=== PATIENT | female | born 1955 | race Caucasian/White ===

== ENCOUNTER → 2020-02-29 | Outpatient (CLI) | payer OTHER ==
[~2020-02-29] MED LIST: HYDACE5325 PO; RXHYD5325 PO
== END ==
LOC: LAB SHORT 14:43 → PLD 14:43
DX: D22.62 Melanocytic nevi of left upper limb, including shoulder (principal)
CPT/HCPCS: 88305

== ENCOUNTER 2023-02-09 08:25 | Day surgery (SDC) | payer OTHER ==
[~2023-02-09] VITALS: Ht 172.7 cm; Wt 104.6 kg
[2023-02-09] MEDS ORDERED: ERGO400 (09:09)
[2023-02-09] MEDS ORDERED: IBUP400 (09:09)
[2023-02-09 10:47] VITALS: BP 110/83
== END 2023-02-09 10:47 | disposition home or self-care (01) ==
LOC: ORSCSDS 08:25
PROVIDERS: Surgery
PROC: 0DBK8ZX Excision of Ascending Colon, Via Natural or Artificial Opening Endoscopic, Diagnostic (ICD-10-PCS; principal; 2023-02-09 09:45)
PROC: 0DBH8ZX Excision of Cecum, Via Natural or Artificial Opening Endoscopic, Diagnostic (ICD-10-PCS; principal; 2023-02-09 09:45)
PROC: 0DBP8ZX Excision of Rectum, Via Natural or Artificial Opening Endoscopic, Diagnostic (ICD-10-PCS; principal; 2023-02-09 09:45)
DX: Z12.11 Encounter for screening for malignant neoplasm of colon (principal); Z86.010 Personal history of colon polyps; K52.9 Noninfective gastroenteritis and colitis, unspecified; D12.0 Benign neoplasm of cecum; D12.2 Benign neoplasm of ascending colon; D12.8 Benign neoplasm of rectum; K21.9 Gastro-esophageal reflux disease without esophagitis; M19.90 Unspecified osteoarthritis, unspecified site; E78.5 Hyperlipidemia, unspecified; D64.9 Anemia, unspecified; Z87.11 Personal history of peptic ulcer disease
CPT/HCPCS: 88305; J2704; J7120

== ENCOUNTER → 2023-04-06 | Outpatient (CLI) | payer OTHER ==
[~2023-04-06] MED LIST changes: +ERGO400; +IBUP400
== END | disposition home or self-care (01) ==
LOC: LAB 13:40 → LAB SHORT 13:40
DX: R73.9 Hyperglycemia, unspecified (principal)
CPT/HCPCS: 83036